=== PATIENT | male | born 1970 | race African-American/Black ===

== ENCOUNTER 2020-07-25 14:31 | Emergency (ER) | payer BC, OTHER ==
[2020-07-25] MEDS ORDERED: Sodium Chloride 0.9% 10 ML Syringe FLUSH PRN (14:52)
[2020-07-25 15:10] VITALS: BP 133/82; PULSE 77
--- NOTE | 2020-07-25 15:31 | EDM.PDOC ---
ED HPI GENERAL MEDICAL PROBLEM - General Chief Complaint: Chest Pain Stated Complaint: CHEST DISCONFORT HAD PREVIOUS HEART ATTACKS Time Seen by Provider: 07/25/20 15:15 Source of Information: Reports: Patient, RN, RN Notes Reviewed History Limitations: Reports: No Limitations - History of Present Illness INITIAL COMMENTS - FREE TEXT/NARRATIVE: Patient presents to the ED with complaints of chest pain and palpitations over the last 24 hours. Per patient report, these symptoms began at about 12pm yesterday (07/24/20) and lasted for roughly six hours. He did note dizziness and mild shortness of breath during the episode; he denies and visual changes, headache, or loss of consciousness during the event. He denies radiation of the chest pain, but noted pain in his left AC during the episode. He states he "...took about three baby aspirin" which did not work to alleviate the symptoms so he "...took four more baby aspirin." He denies any fever, shaking chills, headache, nausea, vomiting, diarrhea, or recent illness. The patient reports a history of multiple "heart attacks" and underwent a stent in 2012 under the care of Dr. Holliday. He states he was previously prescribed Plavix and Warfarin, which he was instructed to stop by a " in [place]." He was recently prescribed Lipitor by an ED provider in [place], but he has not started this medication. He does not have Nitro. He currently rates his chest pain as a 2/10. He denies any alcohol or recreational drug use. He does attest smoking a pack of cigarettes a day. 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 Left Chest Pain Score (Numeric/FACES): 2 - Related Data Allergies Allergy/AdvReac Type Severity Reaction Status Date / Time No Known Allergies Allergy Verified 07/25/20 15:15 Home Meds: Home Meds Warfarin Sodium [Coumadin] 10 mg PO DAILY 09/21/15 [History] Aspirin 81 mg PO ONETIME 06/23/17 [History] Ondansetron [Zofran ODT] 4 mg PO Q4H PRN 06/23/17 [History] atorvaSTATin [Lipitor] 40 mg PO DAILY 06/23/17 [History] Past Medical History HEENT History: Reports: None Cardiovascular History: Reports: Aneurysm, Blood Clots/VTE/DVT, CAD, High Cholesterol, Hypertension, [place] Other Cardiovascular History: "may have had treatment for high blood pressure" Other Respiratory History: History of smoking, current use 1 pack per day 10 yr history Gastrointestinal History: Reports: GERD Other Gastrointestinal History: Heartburn/GERD Musculoskeletal History: Reports: Fracture, Other (See Below) Other Musculoskeletal History: fx wrists Other Hematologic History: hx: Anti-coagulant therapy None for past 3 weeks Dermatologic History: Reports: None Other Dermatologic History: tattoos to upper arms - Infectious Disease History Infectious Disease History: Reports: C-Difficile - Past Surgical History HEENT Surgical History: Reports: None Cardiovascular Surgical History: Reports: Coronary Artery Stent Respiratory Surgical History: Reports: None GI Surgical History: Reports: None Musculoskeletal Surgical History: Reports: Other (See Below) Dermatological Surgical History: Reports: None Social & Family History - Family History Family Medical History: Noncontributory - Caffeine Use Caffeine Use: Reports: None - Living Situation & Occupation Living situation: Reports: , with Spouse Occupation: Employed ED ROS GENERAL - Review of Systems Review Of Systems: Comprehensive ROS is negative, except as noted in HPI. ED EXAM, GENERAL - Physical Exam Exam: See Below Exam Limited By: No Limitations General Appearance: Alert, WD/WN, No Apparent Distress Eye Exam: Bilateral Eye: EOMI, PERRL, Other (Bilateral scleral jaundice) Throat/Mouth: Normal Voice, No Airway Compromise Head: Atraumatic, Normocephalic Respiratory/Chest: No Respiratory Distress, Lungs Clear, Normal Breath Sounds, No Accessory Muscle Use, Rhonchi (To bilateral bases). No: Chest Non-Tender (Tenderness to midsternal chest), Crackles, Rales, Wheezing, Stridor Cardiovascular: Normal Peripheral Pulses, Regular Rate, Rhythm, No Edema, No Gallop, No JVD, No Murmur, No Rub Peripheral Pulses: 2+: Radial (L), Radial (R), Dorsalis Pedis (L), Dorsalis Pedis (R) GI/Abdominal: Normal Bowel Sounds, Soft, Non-Tender, No Distention, No Mass, Pelvis Stable Back Exam: Normal Inspection, Full Range of Motion Extremities: Normal Inspection, Normal Range of Motion, Non-Tender, No Pedal Edema, Normal Capillary Refill Neurological: Alert, Oriented, CN II-XII Intact, Normal Cognition, No Motor/Sensory Deficits Skin Exam: Warm, Dry, Intact, Jaundice (To bilateral sclera). No: Ecchymosis, Erythema, Pallor, Petechiae, Rash #1 Interpretation EKG Date: 07/25/20 Time: 14:48 Rhythm: NSR Rate (Beats/Min): 72 [place]: Normal P-Wave: Enlarged QRS: Normal ST-T: Elevated QT: Normal Comparison: Change From Previous EKG EKG Interpretation Comments: Elevation in V2, V3, V4 improved from previous EKG Course - Vital Signs Last Recorded V/S: Last Vital Signs Temp 97.6 F 07/25/20 15:09 Pulse 77 07/25/20 15:09 Resp 16 07/25/20 15:09 BP 133/82 07/25/20 15:09 Pulse Ox 100 07/25/20 15:09 - Orders/Labs/Meds Orders: Active Orders 24 hr Category Date Time Status EKG Documentation Completion [RC] STAT Care 07/25/20 14:53 Active Peripheral IV Care [RC] . DIRECTED Care 07/25/20 14:53 Active Sodium Chloride 0.9% [Saline Flush] Med 07/25/20 14:52 Active 10 ml FLUSH ASDIRECTED PRN Peripheral IV Insertion Adult [OM.PC] Stat Oth 07/25/20 14:53 Ordered Medication Orders Sodium Chloride (Saline Flush) 10 ml FLUSH ASDIRECTED PRN PRN Reason: Keep Vein Open Last Admin: 07/25/20 15:57 Dose: 10 ml Documented by: CONSUELO Labs: Laboratory Tests 07/25/20 07/25/20 07/25/20 Range/Units 15:03 15:03 15:03 WBC 8.9 (5.0-10.0) 10^3/uL RBC 5.27 (4.6-6.2) 10^6/uL Hgb 15.5 D (14.0-18.0) g/dL Hct 46.0 (40.0-54.0) % MCV 87.3 (80-100) fL MCH 29.4 (27.0-34.0) pg MCHC 33.7 (33.0-35.0) g/dL Plt Count 247 (150-450) 10^3/uL Neut % (Auto) 69.3 (42.2-75.2) % Lymph % (Auto) 23.1 (20.5-50.1) % [place] % (Auto) 6.6 (2-8) % Eos % (Auto) 0.8 L (1.0-3.0) % Baso % (Auto) 0.2 (0.0-1.0) % PT (9.0-12.0) SEC INR (0.9-1.2) APTT (22.0-34.0) SEC D-Dimer, Quantitative (0-400) ng/mL Sodium 140 (136-145) mmol/L Potassium 3.7 (3.5-5.1) mmol/L Chloride 103 (98-107) mmol/L Carbon Dioxide 31 (21-32) mmol/L Anion Gap 9.7 (7-13) mEq/L BUN 15 (7-18) mg/dL Creatinine 1.78 H (0.70-1.30) mg/dL Est Cr Clr Drug Dosing 50.75 mL/min Estimated GFR (MDRD) 50 BUN/Creatinine Ratio 8.4 (No establ ref range) Glucose 123 H (74-99) mg/dL Lactic Acid 1.7 (0.4-2.0) mmol/L Calcium 8.2 L (8.5-10.1) mg/dL Phosphorus 3.2 (2.6-4.7) mg/dL Magnesium 2.1 (1.8-2.4) mg/dL Total Bilirubin 0.5 (0.2-1.0) mg/dL AST 18 (15-37) U/L ALT 17 (16-63) U/L Alkaline Phosphatase 72 (46-116) U/L Troponin I 0.045 (0.000-0.056) ng/mL Total Protein 7.1 (6.4-8.2) g/dL Albumin 3.3 L (3.4-5.0) g/dL Globulin 3.8 Albumin/Globulin Ratio 0.87 Urine Color (YELLOW) Urine Appearance (CLEAR) Urine pH (5.0-9.0) Ur Specific [place] (1.005-1.030) Urine Protein (NEGATIVE) Urine Glucose (UA) (NEGATIVE) Urine Ketones (NEGATIVE) Urine Occult Blood (NEGATIVE) Urine Nitrite (NEGATIVE) Urine Bilirubin (NEGATIVE) Urine Urobilinogen (0.2-1.0) mg/dL Ur Leukocyte Esterase (NEGATIVE) Urine Opiates Screen (NEGATIVE) Ur Oxycodone Screen (NEGATIVE) Urine Methadone Screen (NEGATIVE) Ur Barbiturates Screen (NEGATIVE) U Tricyclic Antidepress (NEGATIVE) Ur Phencyclidine Scrn (NEGATIVE) Ur Amphetamine Screen (NEGATIVE) U Methamphetamines Scrn (NEGATIVE) Urine MDMA Screen (NEGATIVE) U Benzodiazepines Scrn (NEGATIVE) Urine Cocaine Screen (NEGATIVE) U Marijuana (THC) Screen (NEGATIVE) 07/25/20 07/25/20 07/25/20 Range/Units 15:03 15:25 15:25 WBC (5.0-10.0) 10^3/uL RBC (4.6-6.2) 10^6/uL Hgb (14.0-18.0) g/dL Hct (40.0-54.0) % MCV (80-100) fL MCH (27.0-34.0) pg MCHC (33.0-35.0) g/dL Plt Count (150-450) 10^3/uL Neut % (Auto) (42.2-75.2) % Lymph % (Auto) (20.5-50.1) % [place] % (Auto) (2-8) % Eos % (Auto) (1.0-3.0) % Baso % (Auto) (0.0-1.0) % PT 10.5 D (9.0-12.0) SEC INR 1.1 (0.9-1.2) APTT 22.5 (22.0-34.0) SEC D-Dimer, Quantitative 201 (0-400) ng/mL Sodium (136-145) mmol/L Potassium (3.5-5.1) mmol/L Chloride (98-107) mmol/L Carbon Dioxide (21-32) mmol/L Anion Gap (7-13) mEq/L BUN (7-18) mg/dL Creatinine (0.70-1.30) mg/dL Est Cr Clr Drug Dosing mL/min Estimated GFR (MDRD) BUN/Creatinine Ratio (No establ ref range) Glucose (74-99) mg/dL Lactic Acid (0.4-2.0) mmol/L Calcium (8.5-10.1) mg/dL Phosphorus (2.6-4.7) mg/dL Magnesium (1.8-2.4) mg/dL Total Bilirubin (0.2-1.0) mg/dL AST (15-37) U/L ALT (16-63) U/L Alkaline Phosphatase (46-116) U/L Troponin I (0.000-0.056) ng/mL Total Protein (6.4-8.2) g/dL Albumin (3.4-5.0) g/dL Globulin Albumin/Globulin Ratio Urine Color Yellow (YELLOW) Urine Appearance Clear (CLEAR) Urine pH 7.0 (5.0-9.0) Ur Specific [place] 1.025 (1.005-1.030) Urine Protein Negative (NEGATIVE) Urine Glucose (UA) Negative (NEGATIVE) Urine Ketones Trace H (NEGATIVE) Urine Occult Blood Negative (NEGATIVE) Urine Nitrite Negative (NEGATIVE) Urine Bilirubin Negative (NEGATIVE) Urine Urobilinogen 0.2 (0.2-1.0) mg/dL Ur Leukocyte Esterase Negative (NEGATIVE) Urine Opiates Screen Negative (NEGATIVE) Ur Oxycodone Screen Negative (NEGATIVE) Urine Methadone Screen Negative (NEGATIVE) Ur Barbiturates Screen Negative (NEGATIVE) U Tricyclic Antidepress Negative (NEGATIVE) Ur Phencyclidine Scrn Negative (NEGATIVE) Ur Amphetamine Screen Negative (NEGATIVE) U Methamphetamines Scrn Negative (NEGATIVE) Urine MDMA Screen Negative (NEGATIVE) U Benzodiazepines Scrn Negative (NEGATIVE) Urine Cocaine Screen Negative (NEGATIVE) U Marijuana (THC) Screen Negative (NEGATIVE) Meds: Medications Generic Name Dose Route Start Last Admin Trade Name Freq PRN Reason Stop Dose Admin Sodium Chloride 10 ml 07/25/20 14:52 07/25/20 15:57 Saline Flush FLUSH 10 ml ASDIRECTED PRN Administration Keep Vein Open Departure - Departure Time of Disposition: 16:36 Disposition: Home, Self-Care 01 Condition: Good Clinical Impression: H/O heart artery stent Chest pain Qualifiers: Chest pain type: chest pain due to myocardial ischemia Ischemic chest pain type: unstable angina pectoris Qualified Code(s): I20.0 - Unstable angina Forms: ED Department Discharge Additional Instructions: Reconnect with a Fire Equipment Operator for ongoing cardiac management, including blood thinner, antilipid, and Nitro. Sepsis Event Note (ED) - Evaluation Sepsis Screening Result: No Definite Risk - Focused Exam Vital Signs: Vital Signs Temp Pulse Resp BP Pulse Ox 07/25/20 15:09 97.6 F 77 16 133/82 100 - My Orders Last 24 Hours: My Active Orders 07/25/20 14:52 Sodium Chloride 0.9% [Saline Flush] 10 ml FLUSH ASDIRECTED PRN 07/25/20 14:53 EKG Documentation Completion [RC] STAT Peripheral IV Care [RC] . DIRECTED Peripheral IV Insertion Adult [OM.PC] Stat - Assessment/Plan Last 24 Hours: My Active Orders 07/25/20 14:52 Sodium Chloride 0.9% [Saline Flush] 10 ml FLUSH ASDIRECTED PRN 07/25/20 14:53 EKG Documentation Completion [RC] STAT Peripheral IV Care [RC] . DIRECTED Peripheral IV Insertion Adult [OM.PC] Stat
[2020-07-25 15:41] LABS: ANION GAP 9.7 mEq/L (7-13)
[2020-07-25 15:43] LABS: PTT,PARTIAL THROMBOPLSTIN TIME 22.5 SEC (22.0-34.0)
--- NOTE | 2020-07-25 16:31 | CR ---
EXAMINATION: Chest 1V Frontal SEX: Male AGE: 50 years CLINICAL HISTORY: 50-year-old male complaining of Chest pain. INTERPRETATION: Negative. No acute new cardiopulmonary abnormality since November 2015. 1. Normal cardiac silhouette (size and configuration). 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 2. No pulmonary vascular congestion, cephalization of flow, alveolar edema or dependent pleural effusion. 3. No new lung mass or hilar/mediastinal lymphadenopathy. 4. No focal lobar consolidation i.e. no infiltrate, atelectasis or collapse. 5. AP bony thorax unremarkable. 6. No pneumothorax or pneumomediastinum. Midline tracheal bronchial airway unremarkable. No free subdiaphragmatic air. CONCLUSION:
== END 2020-07-25 16:50 | disposition home or self-care (01) ==
LOC: DL.ED 14:31
DX: I25.110 Atherosclerotic heart disease of native coronary artery with unstable angina pectoris (principal); E78.00 Pure hypercholesterolemia, unspecified; I10 Essential (primary) hypertension; I25.2 Old myocardial infarction; Z95.5 Presence of coronary angioplasty implant and graft; Z79.82 Long term (current) use of aspirin; Z79.01 Long term (current) use of anticoagulants; Z79.899 Other long term (current) drug therapy; Z86.718 Personal history of other venous thrombosis and embolism
CPT/HCPCS: 36415; 71045; 80053; 80305-QW; 81003; 83605; 83735; 84100; 84484; 85025; 85379; 85610; 85730; 93005; 93010; 99284; 99285-25

== ENCOUNTER 2020-10-14 15:18 | Emergency (ER) | payer MEDICAID ==
--- NOTE | 2020-10-14 15:36 | EDM.PDOC ---
<Rohini Hale - Last Filed: 10/14/20 19:52> ED HPI GENERAL MEDICAL PROBLEM - General Stated Complaint: SIST ON THE RIGHT ARM Time Seen by Provider: 10/14/20 15:35 - Related Data Allergies Allergy/AdvReac Type Severity Reaction Status Date / Time No Known Allergies Allergy Verified 10/14/20 15:39 Home Meds: Home Meds Warfarin Sodium [Coumadin] 10 mg PO DAILY 09/21/15 [History] Aspirin 81 mg PO ONETIME 06/23/17 [History] Ondansetron [Zofran ODT] 4 mg PO Q4H PRN 06/23/17 [History] atorvaSTATin [Lipitor] 40 mg PO DAILY 06/23/17 [History] Departure - Departure Time of Disposition: 19:35 Disposition: Home, Self-Care 01 Clinical Impression: Multiple open wounds of right upper extremity, Cellulitis of right upper arm, History of methicillin resistant staphylococcus aureus (MRSA) - Discharge Information Instructions: Cellulitis, Adult, [id number] Forms: ED Department Discharge Additional Instructions: Rx: Doxycycline Rx: Augmentin 1.) Take your antibiotics, as prescribed, until they are gone. 2.) Return to the emergency department with any fever, shaking chills, or worsening swelling/pain/drainage to your right arm. 3.) Keep wounds covered with a clean bandage as long as they are draining fluid. 4.) Drink plenty of water to stay hydrated. <Raisa Cm - Last Filed: 10/17/20 11:08> ED HPI GENERAL MEDICAL PROBLEM - General Source of Information: Reports: Patient, Old Records, RN, RN Notes Reviewed History Limitations: Reports: No Limitations - History of Present Illness INITIAL COMMENTS - FREE TEXT/NARRATIVE: Patient presents to the ED via personal vehicle with complaints of wounds to his right upper extremity. He reports the first wound appeared about 1.5 months ago on his lateral antecubital space, he noted drainage and pain at this time but did not receive a medical evaluation for it. He denies injury or trauma to the area prior to the presentation of the wound. He states about two weeks ago a similar wound appeared on his right posterolateral wrist. He notes both wounds have progressively worsened to the point that he has significant swelling to the entire right forearm and hand. He denies fever, shaking chills, palpitations, chest pain, or shortness of breath. She states he has not attempted any treatments or medications for these wounds. He denies history of DM. The patient denies alcohol or recreational drug use, but does attest to smoking 1/4 pack of cigarettes per day. Right Arm Pain Score (Numeric/FACES): 5 Past Medical History HEENT History: Reports: None Cardiovascular History: Reports: Aneurysm, Blood Clots/VTE/DVT, CAD, High Cholesterol, Hypertension, [place] Other Cardiovascular History: "may have had treatment for high blood pressure" Other Respiratory History: History of smoking, current use 1 pack per day 10 yr history Gastrointestinal History: Reports: GERD Other Gastrointestinal History: Heartburn/GERD Musculoskeletal History: Reports: Fracture, Other (See Below) Other Musculoskeletal History: fx wrists Other Hematologic History: hx: Anti-coagulant therapy None for past 3 weeks Dermatologic History: Reports: None Other Dermatologic History: tattoos to upper arms - Infectious Disease History Infectious Disease History: Reports: C-Difficile - Past Surgical History HEENT Surgical History: Reports: None Cardiovascular Surgical History: Reports: Coronary Artery Stent Respiratory Surgical History: Reports: None GI Surgical History: Reports: None Musculoskeletal Surgical History: Reports: Other (See Below) Dermatological Surgical History: Reports: None Social & Family History - Family History Family Medical History: No Pertinent Family History - Caffeine Use Caffeine Use: Reports: None - Living Situation & Occupation Living situation: Reports: , with Spouse Occupation: Employed ED ROS GENERAL - Review of Systems Review Of Systems: Comprehensive ROS is negative, except as noted in HPI. ED EXAM, SKIN/RASH Exam: See Below Exam Limited By: No Limitations General Appearance: Alert, No Apparent Distress Eye Exam: Bilateral Eye: EOMI, PERRL (4mm), Other (Scleral icterus ) Respiratory/Chest: No Respiratory Distress, Lungs Clear, Normal Breath Sounds, No Accessory Muscle Use, Chest Non-Tender Cardiovascular: Normal Peripheral Pulses, Regular Rate, Rhythm, No Edema, No Gallop, No JVD, No Rub, Systolic Murmur (3/6, greatest over the pulmonic area) Peripheral Pulses: 2+: Radial (L), 3+: Radial (R) Extremities: Normal Capillary Refill, Arm Pain (To right upper extremity; Two wounds present), Limited Range of Motion (To elbow and wrist on the right extremity d/t swelling), Increased Warmth (To right upper extremity; two wounds present) Neurological: Alert, Oriented, CN II-XII Intact, Normal Cognition, Normal Gait, No Motor/Sensory Deficits Psychiatric: Normal Affect, Normal Mood Skin: Warm, Dry, Increased Warmth (To right upper extremity), Wound/Incision (Large, open draining wound to lateral antecubital region of right arm; Medium, open draining wound to posterolateral aspect of right arm). No: Ecchymosis, Erythema, Excoriations, Mottled, Pallor Location, Skin: Upper Extremity, Right Characteristics: Other Associated features: Warmth, Tenderness, Swelling, Inflammation, Weeping Course - Vital Signs Last Recorded V/S: Last Vital Signs Temp 98 F 10/14/20 18:00 Pulse 160 H 10/14/20 18:00 Resp 20 10/14/20 18:00 BP 118/86 10/14/20 18:00 Pulse Ox 95 10/14/20 18:00 - Orders/Labs/Meds Labs: Laboratory Tests 10/14/20 10/14/20 10/14/20 Range/Units 15:55 15:55 15:55 WBC 20.6 H (5.0-10.0) 10^3/uL RBC 4.11 L (4.6-6.2) 10^6/uL Hgb 11.6 L D (14.0-18.0) g/dL Hct 34.6 L (40.0-54.0) % MCV 84.2 D (80-100) fL MCH 28.2 (27.0-34.0) pg MCHC 33.5 (33.0-35.0) g/dL Plt Count 397 D (150-450) 10^3/uL Neut % (Auto) 82.7 H (42.2-75.2) % Lymph % (Auto) 8.2 L (20.5-50.1) % [place] % (Auto) 8.7 H (2-8) % Eos % (Auto) 0.3 L (1.0-3.0) % Baso % (Auto) 0.1 (0.0-1.0) % Sodium 131 L (136-145) mmol/L Potassium 3.7 (3.5-5.1) mmol/L Chloride 96 L (98-107) mmol/L Carbon Dioxide 30 (21-32) mmol/L Anion Gap 8.7 (7-13) mEq/L BUN 10 (7-18) mg/dL Creatinine 1.01 (0.70-1.30) mg/dL Est Cr Clr Drug Dosing 89.44 mL/min Estimated GFR (MDRD) > 60 BUN/Creatinine Ratio 9.9 (No establ ref range) Glucose 127 H (74-99) mg/dL Lactic Acid 0.8 (0.4-2.0) mmol/L Calcium 8.4 L (8.5-10.1) mg/dL Total Bilirubin 0.4 (0.2-1.0) mg/dL AST 20 (15-37) U/L ALT 18 (16-63) U/L Alkaline Phosphatase 66 (46-116) U/L Lactate Dehydrogenase 150 (85-227) U/L C-Reactive Protein 13.7 H (0.0-0.9) mg/dL Total Protein 7.5 (6.4-8.2) g/dL Albumin 3.0 L (3.4-5.0) g/dL Globulin 4.5 Albumin/Globulin Ratio 0.67 Meds: Medications Discontinued Medications Generic Name Dose Route Start Last Admin Trade Name Freq PRN Reason Stop Dose Admin Vancomycin HCl 1.25 gm/ Sodium 250 mls @ 167 mls/hr 10/14/20 18:06 10/14/20 18:20 Chloride IV 10/14/20 19:35 167 mls/hr ONETIME ONE Administration Iopamidol 100 ml 10/14/20 16:19 10/14/20 17:11 Isovue-300 (61%) IVPUSH 10/14/20 16:20 100 ml ONETIME ONE Administration - Radiology Interpretation Free Text/Narrative:: [facility] Final Radiology Report Call: [phone] assistance Online chat: [email or web address] Name: KIERSTEN ALTMAN Age: 50Years M Date: 10/14/2020 SSN: -- : [id number] Study: CT UPPER EXTREMITY W CONT RT Requesting Physician: Raisa Cm Images: 409 Addl Studies: Provided Clinical History: Two open wounds; Edema, Pain, Drainage Contrast: With Contrast Medium: Contrast Amount: 100 mL Contrast Method: Intravenous (IV) Page 1 of 2 PROCEDURE INFORMATION: Exam: CT Right Upper Extremity With Contrast Exam date and time: 10/14/2020 4:20 PM Age: 50 years old Clinical indication: Other: Wrist and elbow open sores wbc 20,600; Additional info: Two open wounds; Edema, pain, drainage TECHNIQUE: Imaging protocol: CT of the Right upper extremity with intravenous contrast was performed. Total images: 409 Radiation optimization: All CT scans at this facility use at least one of these dose optimization techniques: automated exposure control; mA and/or kV adjustment per patient size (includes targeted exams where dose is matched to clinical indication); or iterative reconstructi on. Contrast material: [id number]; Contrast volume: 100 ml; Contrast route: INTRAVENOUS (IV); COMPARISON: No relevant prior studies available. FINDINGS: Bones/joints: Orthopedic screw traverses the scaphoid bone. No other definite bony abnormality. Soft tissues: There is focal nonspecific subcutaneous/soft tissue thickening along the lateral aspect of the elbow. Seen best on image [id number], series 4. Moderate to marked soft tissue thickening/edema along the radial aspect of the wrist. No definite gas within. No terri fluid abscess. IMPRESSION: 1. Soft tissue edema/thickening along the radial aspect of the wrist may represent cellulitis. No discrete fluid abscess in this region. 2. Postsurgical changes with orthopedic screw traversing the scaphoid. 3. Nonspecific focal soft tissue thickening along the lateral aspect of the elbow. Uncertain etiology. Possibly inflammatory/infectious. Correlate clinically. KIERSTEN ALTMAN | Final Radiology Report CONFIDENTIALITY STATEMENT This report is intended only for use by the referring physician, and only in accordance with law. If you received this in error, call [phone]. Page 2 of 2 Thank you for allowing us to participate in the care of your patient. Dictated and Authenticated by: Manuel Jackson MD 10/14/2020 5:29 PM Central Time ([place] & [place]) - Re-Assessments/Exams Free Text/Narrative Re-Assessment/Exam: 10/14/20 CT unremarkable for joint or vascular involvement. No gas or abscess appreciated. Patient states he will be traveling to [place] to see his mother in the hospital and would like to avoid inpatient stay. Will administer Vancomycin here and send patient home with prescription for Doxycycline and Augmentin. Red flag signs and symptoms which would warrant immediate evaluation discussed with patient. He verbalized understanding and agreement with plan of care. Departure - Departure Condition: Good - Discharge Information *PRESCRIPTION DRUG MONITORING PROGRAM REVIEWED*: Not Applicable *COPY OF PRESCRIPTION DRUG MONITORING REPORT IN PATIENT SONIYA: Not Applicable
[2020-10-14] MEDS ORDERED: Iopamidol 612 MG/ML 100 ML Bottle IVPUSH ONE (16:19)
[2020-10-14 16:29] LABS: ANION GAP 8.7 mEq/L (7-13); CHLORIDE,CL 96 mmol/L (98-107); SODIUM,NA 131 mmol/L (136-145)
--- NOTE | 2020-10-14 17:39 | CT ---
PROCEDURE INFORMATION: Exam: CT Right Upper Extremity With Contrast Exam date and time: 10/14/2020 4:20 PM Age: 50 years old Clinical indication: Other: Wrist and elbow open sores wbc 20,600; Additional info: Two open wounds; Edema, pain, drainage TECHNIQUE: Imaging protocol: CT of the Right upper extremity with intravenous contrast was performed. Total images: 409 Radiation optimization: All CT scans at this facility use at least one of these dose optimization techniques: automated exposure control; mA and/or kV adjustment per patient size (includes targeted exams where dose is matched to clinical indication); or iterative reconstruction. Contrast material: [id number]; Contrast volume: 100 ml; Contrast route: INTRAVENOUS (IV); COMPARISON: No relevant prior studies available. FINDINGS: Bones/joints: Orthopedic screw traverses the scaphoid bone. No other definite bony abnormality. Soft tissues: There is focal nonspecific subcutaneous/soft tissue thickening along the lateral aspect of the elbow. Seen best on image [id number], series 4. Moderate to marked soft tissue thickening/edema along the radial aspect of the wrist. No definite gas within. No terri fluid abscess. IMPRESSION: 1. Soft tissue edema/thickening along the radial aspect of the wrist may represent cellulitis. No discrete fluid abscess in this region. 2. Postsurgical changes with orthopedic screw traversing the scaphoid. 3. Nonspecific focal soft tissue thickening along the lateral aspect of the elbow. Uncertain etiology. Possibly inflammatory/infectious. Correlate clinically.
[2020-10-14 18:35] VITALS: BP 118/86; PULSE 160
== END 2020-10-14 19:38 | disposition home or self-care (01) ==
LOC: DL.ED 15:18
DX: S41.101A Unspecified open wound of right upper arm, initial encounter (principal); L03.113 Cellulitis of right upper limb; E78.00 Pure hypercholesterolemia, unspecified; I25.10 Atherosclerotic heart disease of native coronary artery without angina pectoris; I10 Essential (primary) hypertension; I25.2 Old myocardial infarction; Z79.01 Long term (current) use of anticoagulants; Z86.14 Personal history of Methicillin resistant Staphylococcus aureus infection; X58.XXXA Exposure to other specified factors, initial encounter
CPT/HCPCS: 36415; 73201; 80053; 83605; 83615; 85025; 86140; 87040; 87070; 96365; 99284; J3370; J7050; Q9967; 99283

== ENCOUNTER 2021-01-04 15:34 | Emergency (ER) | payer MEDICAID | END 2021-01-04 15:50 | disposition left against medical advice (07) | LOC: DL.ED 15:34 | DX: Z53.21 Procedure and treatment not carried out due to patient leaving prior to being seen by health care provider (principal) ==

== ENCOUNTER 2021-11-13 11:26 | Emergency (ER) | payer MEDICAID ==
[2021-11-13 12:20] VITALS: BP 96/79; PULSE 160
[2021-11-13] MEDS: Diltiazem 25 MG/5 ML SDV ONE (12:26)
[2021-11-13 14:16] LABS: ANION GAP 11.1 mEq/L (7-13); CHLORIDE,CL 104 mmol/L (98-107); SODIUM,NA 139 mmol/L (136-145)
== END 2021-11-13 14:57 | disposition home or self-care (01) ==
LOC: DL.ED 11:26
DX: R00.0 Tachycardia, unspecified (principal); I25.10 Atherosclerotic heart disease of native coronary artery without angina pectoris; E78.00 Pure hypercholesterolemia, unspecified; I10 Essential (primary) hypertension; I25.2 Old myocardial infarction; K21.9 Gastro-esophageal reflux disease without esophagitis; Z72.0 Tobacco use; Z95.5 Presence of coronary angioplasty implant and graft
CPT/HCPCS: 36415; 71045; 80053; 84484; 85025; 85610; 93005; 93010; 96374; 99284; 99285; J3490